=== PATIENT | male | born 1945 | race Hispanic/Latino ===

== ENCOUNTER 2020-10-25 10:20 | Emergency (ER) | payer OTHER, MEDICARE ==
[~2020-10-25] VITALS: Ht 188 cm; Wt 87.1 kg
[~2020-10-25 10:20] MED LIST: AMIODARONE HCL200 MG PO; CITALOPRAM HBR20 MG PO; LISINOPRIL2.5 MG PO; PRAVASTATIN SOD10 MG PO
[2020-10-25] MEDS ORDERED: ZOLOFT50 MG PO (13:08)
[2020-10-25] MEDS ORDERED: AMIODARONE HCL100 MG PO (13:08)
[2020-10-25] MEDS ORDERED: TRAZODONE HCL50 MG PO (13:08)
[2020-10-25 14:43] LABS: BASOPHILS # (AUTO) 0.1 (0.0-0.1); BASOPHILS % 0.5 % (0.0-1.0); EOSINOPHILS % 0.2 % (0.0-6.0); HEMATOCRIT 38.2 % (38.2-49.6); HEMOGLOBIN 12.9 g/dL (14.0-18.0); LYMPHOCYTES # (AUTO) 2.3 (1.0-3.2); LYMPHOCYTES % 11.9 % (18.0-39.1); MEAN CORPUSCULAR HGB CONC 33.8 g/dL (31-35); MEAN CORPUSCULAR VOLUME 97.7 fL (81-99); MONOCYTES # (AUTO) 1.4 (0.2-0.8); MONOCYTES % 6.9 % (4.4-11.3); NEUTROPHILS # (AUTO) 15.7 (2.1-6.9); PLATELET COUNT 357 x10e3/uL (140-360); RED BLOOD COUNT 3.91 x10e6/uL (4.3-5.7); RED CELL DISTRIBUTION WIDTH 13.7 % (11.7-14.4)
[2020-10-25 15:02] LABS: ANION GAP 18.2 mmol/L (8-16); CALCIUM 9.4 mg/dL (8.4-10.2); CREATININE, SERUM 1.26 mg/dL (0.72-1.25); POTASSIUM 4.2 mmol/L (3.5-5.1)
[2020-10-25] MEDS ORDERED: SODIUM CHLORIDE 0.9% 500ML 500 ML ONE (15:38)
[2020-10-25] MEDS ORDERED: SODIUM CHLORIDE 0.9% 50ML 50 ML ONE (15:45)
[2020-10-25] MEDS ORDERED: IOPAMIDOL 370 MG/ML 200 ML INFUS..BTL INJ ONE (15:45)
[2020-10-25 18:08] VITALS: BP 141/81
== END 2020-10-25 18:38 | disposition home or self-care (01) ==
LOC: ER 11:46
DX: S42.291A Other displaced fracture of upper end of right humerus, initial encounter for closed fracture (principal); S00.83XA Contusion of other part of head, initial encounter; W01.0XXA Fall on same level from slipping, tripping and stumbling without subsequent striking against object, initial encounter; Y93.01 Activity, walking, marching and hiking; Y92.008 Other place in unspecified non-institutional (private) residence as the place of occurrence of the external cause; E78.00 Pure hypercholesterolemia, unspecified
CPT/HCPCS: 29240; 36415; 70450; 71045; 71260; 72125; 73030; 73060; 80048; 85025; 99284; J7040; Q9967